=== PATIENT | male | born 1955 | race Caucasian/White ===

== ENCOUNTER 2021-08-23 18:19 | Emergency (ER) | payer MEDICARE ==
[~2021-08-23] VITALS: Ht 180.3 cm; Wt 99.8 kg
[2021-08-23] MEDS ORDERED: BENZONATATE100 MG PO (20:58)
[2021-08-23] MEDS ORDERED: CHANTIX STARTER PACK (20:58)
[2021-08-23] MEDS ORDERED: SUDAFED 12 HOU120 MG PO (20:58)
[2021-08-23] MEDS ORDERED: PAXLOVID CO-PA1 EAC1 PO (20:58)
== END 2021-08-23 21:11 | disposition home or self-care (01) ==
LOC: ED 18:19
DX: U07.1 COVID-19 (principal)
CPT/HCPCS: 71045; 87502; 99283-25; A9270; C9803; U0003